=== PATIENT | male | born 2000 | race Caucasian/White ===

== ENCOUNTER 2019-03-30 11:14 | Emergency (ER) | payer OTHER ==
[~2019-03-30] VITALS: Ht 188 cm; Wt 69.0 kg
[2019-03-30 11:33] VITALS: BP 127/75
[2019-03-30] MEDS ORDERED: PROCTOCREAM-HC30 GM RECTAL (11:46)
== END 2019-03-30 11:59 | disposition home or self-care (01) ==
LOC: M.ERS 11:14
DX: K62.5 Hemorrhage of anus and rectum (principal)